=== PATIENT | female | born 1970 | race Two or more races ===

== ENCOUNTER 2021-09-02 06:20 | Day surgery (SDC) | payer OTHER ==
[~2021-09-02] VITALS: Ht 157.5 cm; Wt 83.5 kg
[~2021-09-02 06:20] MED LIST: PROAIR RESPICL90 MCG IH; PULMICORT1 MG/2 ML IH; XYZAL5 MG PO
== END 2021-09-02 15:35 | disposition home or self-care (01) ==
LOC: CIR.AMB 06:20
PROVIDERS: ATTEND Surgery
DX: C50.911 Malignant neoplasm of unspecified site of right female breast (principal); R59.0 Localized enlarged lymph nodes; Z20.822 Contact with and (suspected) exposure to COVID-19; Z90.11 Acquired absence of right breast and nipple; Z90.12 Acquired absence of left breast and nipple; Z42.1 Encounter for breast reconstruction following mastectomy; Z86.16 Personal history of COVID-19; J45.909 Unspecified asthma, uncomplicated; K21.9 Gastro-esophageal reflux disease without esophagitis
CPT/HCPCS: 19303; 19357; 38525; 78195; A9541; L8699

== ENCOUNTER 2021-09-30 15:35 | Outpatient (CLI) | payer OTHER | END 2021-09-30 15:44 | disposition home or self-care (01) | LOC: LAB 15:35 | PROVIDERS: ATTEND Surgery | DX: N61.1 Abscess of the breast and nipple (principal) ==

== ENCOUNTER 2021-12-09 06:15 | Day surgery (SDC) | payer OTHER ==
[~2021-12-09] VITALS: Ht 157.5 cm; Wt 83.5 kg
== END 2021-12-09 14:50 | disposition home or self-care (01) ==
LOC: CIR.AMB 06:15
PROVIDERS: ATTEND Plastic Surgery
DX: N65.1 Disproportion of reconstructed breast (principal); Z90.10 Acquired absence of unspecified breast and nipple; Z88.2 Allergy status to sulfonamides; J45.909 Unspecified asthma, uncomplicated; Z86.16 Personal history of COVID-19; K21.9 Gastro-esophageal reflux disease without esophagitis; C50.911 Malignant neoplasm of unspecified site of right female breast; Z20.822 Contact with and (suspected) exposure to COVID-19
CPT/HCPCS: 11970; 19316; 19318; L8600

== ENCOUNTER 2022-04-30 12:54 | Emergency (ER) | payer OTHER ==
[~2022-04-30] VITALS: Ht 157.5 cm; Wt 83.5 kg
[2022-04-30] MEDS ORDERED: MEDROLPACK PO (14:48)
[2022-04-30] MEDS ORDERED: NAPROXEN500 MG PO (14:48)
[2022-04-30] MEDS ORDERED: ZANAFLEX4 MG PO (14:48)
== END 2022-04-30 14:53 | disposition home or self-care (01) ==
LOC: ER 12:54
DX: M62.838 Other muscle spasm (principal); Z88.2 Allergy status to sulfonamides; J44.9 Chronic obstructive pulmonary disease, unspecified; Z85.3 Personal history of malignant neoplasm of breast